=== PATIENT | male | born 1960 | race Caucasian/White ===

== ENCOUNTER 2017-09-13 17:29 | Emergency (ER) | payer MEDICARE, MEDICAID ==
[~2017-09-13] VITALS: Ht 177.8 cm; Wt 81.3 kg
[~2017-09-13 17:29] MED LIST: AMYL1CAP54 PO; BACL20TA11 PO; CITA20TA11 PO; DOCU-28 PO; HYDR-3972 PO; ONDA4TAB6 PO; PROC-8 PO; PROM25TA14 PO; SUCR1ORA2 PO
[2017-09-13 17:56] LABS: CLARITY,URINE Clear (Clear); COLOR,URINE Yellow (Yellow); GLUCOSE, URINE Negative (Neg); KETONES,URINE Negative (Neg); LEUKOCYTE ESTERASE ,URINE Negative (Neg); NITRITES, URINE Negative (Neg); OCCULT BLOOD,URINE Negative (Neg); PROTEIN,URINE Negative (Neg); UROBILINOGEN,URINE 0.2 E.U/dL (0.2-1.0)
[2017-09-13 17:59] LABS: UA COLLECTION TYPE VOIDED
[2017-09-13 18:01] LABS: BASOPHILS % (AUTO) 0.3 % (0-1); EOSINOPHILS # (AUTO) 0.1 X10'3 (0-0.9); EOSINOPHILS % (AUTO) 1.1 % (0-6); HEMATOCRIT 42.6 % (42.0-52.0); HEMOGLOBIN 14.8 g/dl (14.0-17.9); LYMPHOCYTES # (AUTO) 1.2 X10'3 (1.1-4.8); LYMPHOCYTES % (AUTO) 20.9 % (21-51); MEAN CORPUSCULAR HGB CONC 34.6 % (33.0-36.5); MEAN CORPUSCULAR VOLUME 89.6 FL (78-98); MEAN PLATELET VOLUME 8.6 FL (7.4-10.4); MONOCYTES # (AUTO) 0.3 X10'3 (0-0.9); MONOCYTES % (AUTO) 5.4 % (2-12); NEUTROPHILS # (AUTO) 4.1 X10'3 (1.8-7.7); NEUTROPHILS % (AUTO) 72.3 % (42-75); PLATELET COUNT 182 X10'3 (140-440); RED BLOOD COUNT 4.76 X10'6 (4.70-6.10); RED CELL DISTRIBUTION WIDTH 13.8 % (11.5-14.5); WHITE BLOOD COUNT 5.6 X10'3 (4.5-11.0)
[2017-09-13 18:17] LABS: ALANINE AMINOTRANSFERASE 90 U/L (12-78); ALBUMIN 4.2 G/DL (3.4-5.0); ALBUMIN/GLOBULIN RATIO 1.3 (1.1-1.5); ALKALINE PHOSPHATASE 104 IU/L (46-116); AMYLASE 33 U/L (25-115); ANION GAP 10 (8-16); ASPARTATE AMINO TRANSFERASE 51 U/L (10-37); BILIRUBIN,TOTAL 0.5 MG/DL (0.1-1.0); BLOOD UREA NITROGEN 7 MG/DL (7-18); BUN/CREATININE RATIO 8.6 (5.4-32.0); CHLORIDE 106 MMOL/L (99-107); CREATININE 0.81 MG/DL (0.60-1.10); GLUCOSE 108 MG/DL (70-104); POTASSIUM 3.5 MMOL/L (3.5-5.1); SODIUM 142 MMOL/L (135-145); TOTAL CARBON DIOXIDE 26.3 MMOL/L (24-32); TOTAL PROTEIN 7.5 G/DL (6.4-8.2); eGFR > 90 ML/MIN
[2017-09-13 18:28] LABS: LIPASE < 50 U/L (73-393)
[2017-09-13 19:04] VITALS: BP 131/87
== END 2017-09-13 19:06 | disposition home or self-care (01) ==
LOC: ER 17:30
DX: R10.12 Left upper quadrant pain (principal); R11.2 Nausea with vomiting, unspecified; K21.9 Gastro-esophageal reflux disease without esophagitis; F41.9 Anxiety disorder, unspecified; F32.9 Major depressive disorder, single episode, unspecified; F41.0 Panic disorder [episodic paroxysmal anxiety]; Z90.49 Acquired absence of other specified parts of digestive tract; F12.10 Cannabis abuse, uncomplicated; Z88.8 Allergy status to other drugs, medicaments and biological substances; Z88.5 Allergy status to narcotic agent; Z79.899 Other long term (current) drug therapy; Z95.5 Presence of coronary angioplasty implant and graft
CPT/HCPCS: 36415; 80053; 81003; 82150; 83690; 85025; 93005; 99285

== ENCOUNTER 2019-03-20 17:29 | Emergency (ER) | payer MEDICARE, MEDICAID ==
[~2019-03-20] VITALS: Ht 172.7 cm; Wt 68.0 kg
[~2019-03-20 17:29] MED LIST changes: -CITA20TA11 PO; +CITA20TA28 PO
[2019-03-20] MEDS ORDERED: HYDROcodone/acetaminophen 10/325mg tab PO ONE (18:30)
--- NOTE | 2019-03-20 18:36 | NUR ---
to CXR via WC.
--- NOTE | 2019-03-20 19:51 | NUR ---
to CT via WC.
[2019-03-20 19:56] LABS: BASOPHILS % (AUTO) 0.4 % (0-1); EOSINOPHILS % (AUTO) 0.5 % (0-6); HEMATOCRIT 40.4 % (42.0-52.0); LYMPHOCYTES # (AUTO) 1.4 X10'3 (1.1-4.8); LYMPHOCYTES % (AUTO) 17.5 % (21-51); MEAN CORPUSCULAR HEMOGLOBIN 32.6 PG (27.0-31.0); MEAN CORPUSCULAR HGB CONC 34.6 g/dL (33.0-36.5); MEAN CORPUSCULAR VOLUME 94.3 FL (78-98); MEAN PLATELET VOLUME 8.2 FL (7.4-10.4); MONOCYTES # (AUTO) 0.5 X10'3 (0-0.9); NEUTROPHILS # (AUTO) 6.3 X10'3 (1.8-7.7); NEUTROPHILS % (AUTO) 75.6 % (42-75); PLATELET COUNT 133 X10'3 (140-440); RED BLOOD COUNT 4.28 X10'6 (4.70-6.10); RED CELL DISTRIBUTION WIDTH 13.4 % (11.5-14.5); WHITE BLOOD COUNT 8.3 X10'3 (4.5-11.0)
[2019-03-20 20:12] LABS: ALANINE AMINOTRANSFERASE 456 U/L (12-78); ALBUMIN 3.4 G/DL (3.4-5.0); ALBUMIN/GLOBULIN RATIO 1.1 (1.1-1.5); ALKALINE PHOSPHATASE 189 IU/L (46-116); ANION GAP 8 (8-16); ASPARTATE AMINO TRANSFERASE 248 U/L (10-37); BILIRUBIN,TOTAL 1.5 MG/DL (0.1-1.0); BLOOD UREA NITROGEN 7 MG/DL (7-18); CALCIUM 8.6 MG/DL (8.5-10.1); CHLORIDE 106 MMOL/L (99-107); GLUCOSE 95 MG/DL (70-104); LIPASE 253 U/L (73-393); POTASSIUM 3.4 MMOL/L (3.5-5.1); SODIUM 140 MMOL/L (135-145); TOTAL PROTEIN 6.4 G/DL (6.4-8.2); eGFR > 90 ML/MIN
[2019-03-20 22:44] VITALS: BP 121/78
== END 2019-03-20 22:46 | disposition home or self-care (01) ==
LOC: ER 17:29
DX: R07.2 Precordial pain (principal); R10.13 Epigastric pain; R79.89 Other specified abnormal findings of blood chemistry; K21.9 Gastro-esophageal reflux disease without esophagitis; G89.29 Other chronic pain; F41.9 Anxiety disorder, unspecified; F32.9 Major depressive disorder, single episode, unspecified; F41.0 Panic disorder [episodic paroxysmal anxiety]; F17.200 Nicotine dependence, unspecified, uncomplicated; F12.90 Cannabis use, unspecified, uncomplicated; Z88.8 Allergy status to other drugs, medicaments and biological substances; Z90.49 Acquired absence of other specified parts of digestive tract; Z98.890 Other specified postprocedural states; Z95.5 Presence of coronary angioplasty implant and graft; Z88.6 Allergy status to analgesic agent; Z79.899 Other long term (current) drug therapy
CPT/HCPCS: 36415; 71046; 71250; 74176; 80053; 83690; 85025; 93005; 99284

== ENCOUNTER 2022-12-02 08:54 | Emergency (ER) | payer MEDICARE, MEDICAID ==
[~2022-12-02] VITALS: Ht 172.7 cm; Wt 60.9 kg
[2022-12-02] MEDS ORDERED: normal saline 1000ML IV soln IVB ONE (09:50)
[2022-12-02] MEDS ORDERED: ondansetron/PF 4mg/2ml inj IV ONE (10:00)
[2022-12-02 10:31] LABS: BASOPHILS % (AUTO) 0.6 % (0-1); EOSINOPHILS % (AUTO) 0.4 % (0-6); HEMATOCRIT 45.2 % (42.0-52.0); HEMOGLOBIN 15.5 g/dl (14.0-17.9); LYMPHOCYTES # (AUTO) 1.4 X10'3 (1.1-4.8); LYMPHOCYTES % (AUTO) 19.1 % (21-51); MEAN CORPUSCULAR HEMOGLOBIN 32.6 PG (27.0-31.0); MEAN CORPUSCULAR HGB CONC 34.3 g/dL (33.0-36.5); MEAN CORPUSCULAR VOLUME 95.1 FL (78-98); MEAN PLATELET VOLUME 7.4 FL (7.4-10.4); MONOCYTES # (AUTO) 0.6 X10'3 (0-0.9); MONOCYTES % (AUTO) 7.8 % (2-12); NEUTROPHILS # (AUTO) 5.1 X10'3 (1.8-7.7); NEUTROPHILS % (AUTO) 72.1 % (42-75); PLATELET COUNT 265 X10'3 (140-440); RED BLOOD COUNT 4.76 X10'6 (4.70-6.10); RED CELL DISTRIBUTION WIDTH 13.7 % (11.5-14.5); WHITE BLOOD COUNT 7.1 X10'3 (4.5-11.0)
[2022-12-02 10:48] LABS: ALANINE AMINOTRANSFERASE 347 U/L (12-78); ALBUMIN 4.2 G/DL (3.4-5.0); ALBUMIN/GLOBULIN RATIO 1.2 (1.1-1.5); ALKALINE PHOSPHATASE 326 IU/L (46-116); ANION GAP 10 (8-16); ASPARTATE AMINO TRANSFERASE 112 U/L (10-37); BILIRUBIN,TOTAL 0.5 MG/DL (0.1-1.0); BLOOD UREA NITROGEN 17 MG/DL (7-18); CALCIUM 9.2 MG/DL (8.5-10.1); CHLORIDE 97 MMOL/L (99-107); CREATININE 0.63 MG/DL (0.60-1.10); GLUCOSE 384 MG/DL (70-104); LIPASE < 50 U/L (73-393); POTASSIUM 4.4 MMOL/L (3.5-5.1); SODIUM 134 MMOL/L (135-145); TOTAL CARBON DIOXIDE 27.3 MMOL/L (24-32); TOTAL PROTEIN 7.7 G/DL (6.4-8.2); eGFR > 90 ML/MIN
[2022-12-02] MEDS: morphine 4 MG/ML inj SYRINge IV PRN ×2 (10:54→12:09)
[2022-12-02] MEDS ORDERED: iohexol 300mg/ml 100ml inj. ONE (10:56)
[2022-12-02 11:17] LABS: CLARITY,URINE CLEAR (Clear); COLOR,URINE YELLOW (Yellow); GLUCOSE, URINE >=1000 mg/dl (Neg); KETONES,URINE 40 mg/dl (Neg); LEUKOCYTE ESTERASE ,URINE NEGATIVE (Neg); NITRITES, URINE NEGATIVE (Neg); OCCULT BLOOD,URINE NEGATIVE (Neg); PROTEIN,URINE NEGATIVE (Neg); UROBILINOGEN,URINE 0.2 E.U/dL (0.2-1.0)
[2022-12-02 11:22] LABS: UA COLLECTION TYPE CLN CATCH MIDSTREAM
[2022-12-02 11:25] LABS: BACTERIA,URINE NONE SEEN /HPF (Neg); MUCUS STRANDS NONE SEEN /LPF (Neg); RBC,URINE NONE SEEN /HPF (0-2); SQUAMOUS EPITHELIAL CELL,UR FEW /LPF (FEW); WBC,URINE 0-4 /HPF (0-4)
[2022-12-02] MEDS ORDERED: ketorolac trometh. 30mg/ml inj. IV ONE (11:45)
--- NOTE | 2022-12-02 13:03 | NUR ---
pt now reports pain is down to 2/10 and he is comfortable. IV fluids are done infusing. will recheck blood sugar and update provider. still awaiting CT results.
--- NOTE | 2022-12-02 14:24 | NUR ---
ORGANIC SEARCH LEAD PAGED TO ASSIST PT IN OBTAINING INSULIN.
[2022-12-02] MEDS ORDERED: metoclopramide 5 mg/ml inj IV ONE (14:50)
--- NOTE | 2022-12-02 15:04 | NUR ---
DIESEL MOTOR MECHANIC IN THE DEPARTMENT CURRENTLY. WILL SPEAK TO PATIENT.
[2022-12-02 16:02] VITALS: BP 114/78
== END 2022-12-02 16:05 | disposition home or self-care (01) ==
LOC: ER 08:56
DX: R73.9 Hyperglycemia, unspecified (principal); R10.9 Unspecified abdominal pain; K21.9 Gastro-esophageal reflux disease without esophagitis; F31.9 Bipolar disorder, unspecified; Z87.81 Personal history of (healed) traumatic fracture; Z88.6 Allergy status to analgesic agent; Z88.8 Allergy status to other drugs, medicaments and biological substances; Z79.899 Other long term (current) drug therapy
CPT/HCPCS: 36415; 71260; 74177; 76700; 80053; 81001; 82948; 83690; 83735; 85025; 93005; 96374; 96375; 96376; 99285; J1885; J2270; J2405; J2765; J3490; J7030; Q9967

== ENCOUNTER 2022-12-05 08:34 | Emergency (ER) | payer MEDICARE, MEDICAID ==
[~2022-12-05] VITALS: Ht 172.7 cm; Wt 62.0 kg
[2022-12-05] MEDS ORDERED: acetaminophen 325mg tablet PO ONE (09:30)
[2022-12-05 09:56] VITALS: BP 133/81
== END 2022-12-05 10:06 | disposition home or self-care (01) ==
LOC: ER 08:34
DX: G56.21 Lesion of ulnar nerve, right upper limb (principal); M25.511 Pain in right shoulder; K21.9 Gastro-esophageal reflux disease without esophagitis; E11.9 Type 2 diabetes mellitus without complications; F12.90 Cannabis use, unspecified, uncomplicated; Z88.5 Allergy status to narcotic agent; Z88.1 Allergy status to other antibiotic agents
CPT/HCPCS: 73030; 99284; A4565

== ENCOUNTER 2024-02-02 12:30 | Emergency (ER) | payer MEDICARE, MEDICAID ==
[~2024-02-02] VITALS: Ht 172.7 cm; Wt 71.4 kg
[2024-02-02 13:23] VITALS: RESP 18; TEMP 97.8
[2024-02-02] MEDS ORDERED: ONDA4TAB12 PO (16:21)
[2024-02-02 16:47] VITALS: BP 139/81; PULSE 81; O2SAT 97
== END 2024-02-02 16:53 | disposition home or self-care (01) ==
LOC: ER 12:30
DX: F07.81 Postconcussional syndrome (principal); E11.9 Type 2 diabetes mellitus without complications; G89.29 Other chronic pain; Z85.9 Personal history of malignant neoplasm, unspecified; F32.A Depression, unspecified; F41.9 Anxiety disorder, unspecified; Z90.49 Acquired absence of other specified parts of digestive tract; F12.90 Cannabis use, unspecified, uncomplicated; Z98.890 Other specified postprocedural states; Z91.018 Allergy to other foods; Z79.899 Other long term (current) drug therapy; Z88.8 Allergy status to other drugs, medicaments and biological substances
CPT/HCPCS: 99283

== ENCOUNTER 2025-02-10 13:12 | Emergency (ER) | payer MEDICARE, MEDICAID ==
[~2025-02-10] VITALS: Ht 172.7 cm; Wt 66.5 kg
[~2025-02-10 13:12] MED LIST changes: +CITA-178 PO; -CITA20TA28 PO; +ONDA-243 PO
--- NOTE | 2025-02-10 14:18 | RADIOLOGY REPORT ---
Indication: HAND PAIN Technique: 3 views left hand Comparison: None FINDINGS/IMPRESSION: No radiographic evidence for acute fracture or dislocation. No significant soft tissue edema. No rad iopaque foreign body. 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
[2025-02-10] MEDS: naproxen 500mg tablet PO ONE (14:37)
--- NOTE | 2025-02-10 15:27 | Physician Documentation ---
History of Present Illness ~ Chief Complaint: Hand pain Stated Complaint: LEFT KNUCKLE PAIN Time Seen by MD: 14:07 OK to notify your PCP?: Yes Primary Medical Doctor: Kami Schrader Source: patient Mode of Arrival: POV Exam Limitations: no limitations HPI 64-year-old male presents with increased left hand and 3rd finger knuckle pain and swelling after dog stepped on it today around 11:00 a.m.. He states that he is a patient of Dr. Johnson and is awaiting reconstructive hand surgery and last saw For 2 weeks ago. He reports that he has decreased range of motion in the hand at baseline. He took 2 Tylenol around 11 30 this morning for the pain. Tetanus within 5 years: Yes Medication Reconciliation Allergies: Coded Allergies: tramadol HCl (Verified Allergy, Intermediate, SEIZURES, 03/20/19) meloxicam (Verified Allergy, Mild, DIZZY, 03/20/19) ziprasidone HCl (Verified Adverse Reaction, Intermediate, EYES DROOP, 03/20/19) ziprasidone mesylate (Verified Adverse Reaction, Intermediate, EYES DROOP, 03/20/19) Uncoded Allergies: NYTOL (Allergy, Unknown, 05/22/14) orange (Allergy, Unknown, 08/06/12) oranges (Adverse Reaction, Intermediate, hates oranges, 06/21/13) Scheduled Citalopram Hydrobromide* (Celexa*), 20 MG PO BID, (Reported) Lipase/Protease/Amylase (Creon Dr 12,000 Units Capsule), 1 CAP PO DMRX1, (Reported) Naproxen (Naproxen), 1 TAB PO Q12H Sucralfate (Carafate), 10 ML PO QID, (Reported) Scheduled PRN Baclofen (Baclofen), 1 TAB PO TID PRN for muscle spasms, (Reported) Docusate Sodium (Colace), 1 CAP PO Q12H PRN for constipation Hydrocodone Bit/Acetaminophen (Hydrocodon-Acetaminophn 10-325 tablet), 1 TAB PO Q4H PRN for moderate or severe pain, (Reported) ONDANSETRON ODT 4mg tablet (Ondansetron Odt), 1 TAB PO Q6H PRN PRN for nausea/vomiting Ondansetron Hcl (Zofran), 1 TAB PO Q6H PRN for nausea Prochlorperazine Maleate (Compazine), 1 TAB PO Q8HPRN PRN for pain Promethazine HCl (Promethazine HCl), 1 TAB PO DAILY PRN for nausea/vomiting, (Reported) Past Medical History Past Medical History: Headache, Seizures, Diverticulitis, Diverticulosis, GERD, Pancreatitis, Hernia, Diabetes, Chronic Pain, Extremity Fracture, *CANCER*, Anxiety, Depression, Panic Disorder Past Surgical History: abdominal surgery, cholecystectomy, orthopedic surgeries, other Other Past Surgical History: Cardiac stent, hernia, pancreatic stents Alcohol Use: None Drug Use: marijuana Lives with: Spouse Lives In: Home Occupation: employed Review of Systems All Other Systems at this time: Reviewed and Negative Physical Exam Vital Signs: RN Vital Signs have been reviewed: Yes, Temperature: 98.0, Source: Temporal, Heart Rate: 88, Respiratory Rate: 16, BP: 139/87, Pulse Oximetry: 97, Weight: 66.500 Oxygen Flow Rate: 0 Pulse Oximetry Reflects: adequate oxygenation Physical Exam General: Alert, no distress. HEENT: No injection, moist mucous membranes. Neck: Full range of motion. Respiratory: No respiratory distress, equal chest rise and fall. Chest: No accessory muscle use. Cardiovascular: Regular rate and rhythm. Gastrointestinal: Nondistended. Extremities: Decreased range of motion in left hand and middle proximal interphalangeal joint, good CSM, good sensation and pulses. Neurologic: Oriented x4. Psychiatric: Normal mood and affect. Skin: Normal color, warm and dry. Progress Results/Orders Reviewed/noted all lab results: Yes Results/Orders Orders - KATELYN NETTLES Ortho Orders (02/10/25 ) Completed Orders - KATELYN NETTLES Naproxen Tablet (Naprosyn Tablet) (02/10/25 14:25) Medications Received in ER Medications (Trade) Dose Ordered Sig/Analy Route PRN Reason Start Time Stop Time Status Last Admin Dose Admin (Naprosyn tablet) 500 mg ONCE ONCE PO 02/10/25 14:25 02/10/25 14:27 DC 02/10/25 14:37 500 MG Vital Signs 02/10/25 13:16 Temp 98.0 Pulse 88 Resp 16 B/P (MAP) 139/87 Pulse Ox 97 O2 Flow Rate 0 EKG/XRAY/CT/US/VASC/MRI Bone/Soft Tissue X-Ray (Ext.) : Additional Comment Left hand x-ray as interpreted by me; no joint effusion, no acute fracture, no soft tissue swelling, no dislocation, or foreign body. Degenerative changes of left wrist and fingers. Medical Decision Making Additional info obtained from: old records Findings 64-year-old male presents with left hand pain and swelling especially at the proximal joint of the middle finger. He states that he is awaiting reconstr uctive surgery on this hand knuckle. His dog stepped on it this morning in caused increased pain, heard a pop sound and increased swelling. He has decreased range of motion in his hand at baseline so it is difficult to know if this is at his baseline or if this has increased since the injury. I gave naproxen while here in the department and sent a prescription to his pharmacy fo connie naproxen. I placed a call into Dr. Johnson as he is avionics integration engineer for ortho services today and left a message. It has been about 30-40 minutes and I have not received a phone call back regarding if this patient needs to be placed in a splint or not. His x-ray shows degenerative changes but there is no acute fracture. Patient has been educated to follow up and call Dr. Fleming's office 1st thing Wednesday, I placed a Siva bandage to help provide a little extra support and educated the patient on the RICE method. You can return back here for any new or worsening symptoms. General Diff Dx:Considerations: Include: Contusion, Fracture, Hematoma, Neurovascular injury, Sprain Departure Disposition: 01 HOME / SELF CARE / HOMELESS Impression: Primary Impression: Hand pain Condition: Stable Discharge Instructions: Arthritis, Nonspecific Additional Instructions: Please follow up with Dr. Johnson 1st thing Wednesday. You have been given a Siva bandage to provide a little extra support. Please rest, ice 20 minutes on 20 minutes off, elevate your hand for the next 48 hours and then you can switch to alternating ice and heat. Return back here for any new or worsening symptoms. Can take the naproxen for pain and swelling relief twice daily. Referrals: NO PRIMARY CARE PROVIDER (PCP) Prescriptions Naproxen (Naproxen) 500 Mg Tablet 1 TAB PO Q12H, #20 TAB Prov: KATELYN NETTLES TRAFFIC ROUTING ENGINEER 02/10/25 Education Educated: Patient Educated regarding: diagnosis, treatment, prognosis, need for follow up Signature Scribe Signature: . Attestation: Scribed for Katelyn Nettles by Katelyn Zapata NP . 02/10/25 15:28 KATELYN NETTLESP Feb 10, 2025 15:27
[2025-02-10] MEDS ORDERED: NAPR-56 PO (15:30)
[2025-02-10 15:31] VITALS: BP 163/103; PULSE 70; RESP 14; TEMP 98.3; O2SAT 100
== END 2025-02-10 15:40 | disposition home or self-care (01) ==
LOC: ER 13:13
DX: M79.642 Pain in left hand (principal); E11.9 Type 2 diabetes mellitus without complications; F12.90 Cannabis use, unspecified, uncomplicated; F41.9 Anxiety disorder, unspecified; F32.A Depression, unspecified; Z88.8 Allergy status to other drugs, medicaments and biological substances; Z90.49 Acquired absence of other specified parts of digestive tract; Z95.5 Presence of coronary angioplasty implant and graft
CPT/HCPCS: 73130; 99283; A6449

== ENCOUNTER 2025-06-21 17:24 | Emergency (ER) | payer MEDICARE, MEDICAID ==
[~2025-06-21] VITALS: Ht 172.7 cm; Wt 71.2 kg
[2025-06-21 17:32] VITALS: BP 125/83; PULSE 70; RESP 18; O2SAT 98
--- NOTE | 2025-06-21 20:03 | RADIOLOGY REPORT ---
CLINICAL HISTORY: Injury LEFT TECHNIQUE: 3 views of the right knee were obtained. COMPARISON: None FINDINGS: No acute fracture or dislocation is seen. No joint effusion is evident. There are minimal degenerative changes of the lateral compartment with osteophyte formation. IMPRESSION: NO ACUTE RADIOGRAPHIC ABNORMALITY OF THE RIGHT KNEE.
--- NOTE | 2025-06-21 20:38 | Physician Documentation ---
History of Present Illness ~ Chief Complaint: Knee Pain Stated Complaint: KNEE PAIN Time Seen by MD: 17:58 Primary Medical Doctor: Dr. Kami GIORDANO [age] year male who presents to the emergency department with the acute on chronic left knee pain. Reports that several days ago he had two dogs bumped into the lateral aspect of the knee creating left medial knee pain. There was no acute swelling. Reports multiple meniscus surgeries to the left knee. He is grossly neurologically intact. He has been wearing and articulated knee brace. Tetanus witin 5 years: Yes Medication Reconciliation Allergies: Coded Allergies: tramadol HCl (Verified Allergy, Intermediate, SEIZURES, 06/21/25) meloxicam (Verified Allergy, Mild, DIZZY, 06/21/25) ziprasidone HCl (Verified Adverse Reaction, Intermediate, EYES DROOP, 1 ) ziprasidone mesylate (Verified Adverse Reaction, Intermediate, EYES DROOP, 06/21/25) Uncoded Allergies: NYTOL (Allergy, Unknown, 05/22/14) orange (Allergy, Unknown, 08/06/12) oranges (Adverse Reaction, Intermediate, hates oranges, 06/21/13) Scheduled Citalopram Hydrobromide* (Celexa*), 20 MG PO BID, (Reported) Lipase/Protease/Amylase (Creon Dr 12,000 Units Capsule), 1 CAP PO DMRX1, ( Reported) Sucralfate (Carafate), 10 ML PO QID, (Reported) Scheduled PRN Baclofen (Baclofen), 1 TAB PO TID PRN for muscle spasms, (Reported) Docusate Sodium (Colace), 1 CAP PO Q12H PRN for constipation Hydrocodone Bit/Acetaminophen (Hydrocodon-Acetaminophn 10-325 tablet), 1 TAB PO Q4H PRN for moderate or severe pain, (Reported) ONDANSETRON ODT 4mg tablet (Ondansetron Odt), 1 TAB PO Q6H PRN PRN for nausea/vomiting Ondansetron Hcl (Zofran), 1 TAB PO Q6H PRN for nausea Prochlorperazine Maleate (Compazine), 1 TAB PO Q8HPRN PRN for pain Promethazine HCl (Promethazine HCl), 1 TAB PO DAILY PRN for nausea/vomiting, (Reported) Past Medical History Past Medical History: Headache, Seizures, Diverticulitis, Diverticulosis, GERD, Pancreatitis, Hernia, Diabetes, Chronic Pain, Extremity Fracture, *CANCER*, Anxiety, Depression, Panic Disorder Past Surgical History: abdominal surgery, cholecystectomy, orthopedic surgeries, other Other Past Surgical History: Cardiac stent, hernia, pancreatic stents Alcohol Use: None Drug Use: marijuana Lives with: Spouse Lives In: Home Occupation: employed Physical Exam Vital Signs: Temperature: 97.4, Source: Temporal, Heart Rate: 70, Respiratory Rate: 18, BP: 125/83, Pulse Oximetry: 98, Weight: 71.200 Oxygen Flow Rate: 0 Progress Results/Orders Results/Orders Orders - EILEEN MARTINEZ PAC Knee 3 Vws (06/21/25 19:38) Ortho Orders (06/21/25 ) Completed Orders - EILEEN MARTINEZ PAC Knee 3 Vws (06/21/25 19:38) Vital Signs 06/21/25 06/21/25 17:32 20:52 Temp 97.4 97.4 Pulse 70 Resp 18 B/P (MAP) 125/83 Pulse Ox 98 O2 Flow Rate 0 Medical Decision Making Additional information obtaine: N/A Findings Examination history consistent with acute on chronic left knee pain with no injury requiring x-ray imaging. X-ray imaging reassuring. Transition the patient from articulating patellar cut-out too long leg knee immobilizer and pr ovided crutches. Obvious effusion or obvious laxity yet can not exclude medial collateral ligament injury. Recommend primary care and orthopedic follow up for definitive management. General Diff Dx:Considerations: Include: Contusion, Fracture Knee Diff Dx:Considerations: Include: Arthritis, DJD, Meniscus injury, Neurovascular injury, Sprain-MCL, Sprain-LCL Ankle Diff Dx:Considerations: Include: Other (Noncontributory) Foot Diff Dx:Considerations: Include: Other (Noncontributory) Toe Diff Dx:Considerations: Include: Other (Noncontributory) Departure Disposition: HOME / SELF CARE / HOMELESS Impression: Primary Impression: Sprain of knee Qualified Codes: S83.412A - Sprain of medial collateral ligament of left knee, initial encounter Discharge Instructions: Knee Sprain, Adult Additional Instructions: X-rays are reassuring today. Please wear the along leg knee immobilizer for comfort and support and use crutches to assist with ambulation. Keep your scheduled follow up with the orthopedist for suspected medial collateral left knee injury. Referrals: NO PRIMARY CARE PROVIDER (PCP) Education Educated: Patient Educated regarding: diagnosis, treatment, prognosis, need for follow up Signature Scribe Signature: . Attestation: . EILEEN MARTINEZ [facility] Jun 21, 2025 20:38
[2025-06-21 20:52] VITALS: TEMP 97.4
== END 2025-06-21 20:54 | disposition home or self-care (01) ==
LOC: ER 17:25
DX: S83.412A Sprain of medial collateral ligament of left knee, initial encounter (principal); G89.29 Other chronic pain; E11.9 Type 2 diabetes mellitus without complications; K21.9 Gastro-esophageal reflux disease without esophagitis; F41.9 Anxiety disorder, unspecified; F32.A Depression, unspecified; F12.90 Cannabis use, unspecified, uncomplicated; Z95.5 Presence of coronary angioplasty implant and graft; Z90.49 Acquired absence of other specified parts of digestive tract; Z88.8 Allergy status to other drugs, medicaments and biological substances; Z87.19 Personal history of other diseases of the digestive system; Z88.5 Allergy status to narcotic agent; Z79.899 Other long term (current) drug therapy; W22.8XXA Striking against or struck by other objects, initial encounter; Y93.89 Activity, other specified; Y92.89 Other specified places as the place of occurrence of the external cause; Y99.8 Other external cause status
CPT/HCPCS: 29505; 73562; 99283

== ENCOUNTER 2025-08-15 12:59 | Outpatient (CLI) | payer MEDICARE, MEDICAID ==
--- NOTE | 2025-08-15 14:39 | RADIOLOGY REPORT ---
EXAM: MR MRI LOWER EXTREMITY LEFT INDICATION: PAIN IN LEFT KNEE TECHNIQUE:: Multiplanar and multisequence MR imaging of the left knee was performed in the absence of gadolinium contrast. COMPARISON: None FINDINGS: There is blunting of the free edge of the body of the medial meniscus due to a bucket-handle tear. The lateral meniscus is intact The posterior cruciate ligament is normal in contour and signal intensity. Anterior cruciate ligament thickened and increased in signal intensity probably due to partial tear The collateral ligaments are intact Quadriceps and patellar tendons are intact Trace joint effusion The hyaline cartilage surfaces covering the patellofemoral joint are smooth IMPRESSION: 1. There is blunting of the free edge of the body of the medial meniscus most likely due to a bucket-handle tear 2. Partial tear anterior cruciate ligament probably old
== END 2025-08-15 23:59 | disposition home or self-care (01) ==
LOC: MRI02 12:59
PROVIDERS: ATTEND Physician Assistant Surgical
DX: S83.212A Bucket-handle tear of medial meniscus, current injury, left knee, initial encounter (principal); M25.562 Pain in left knee; S83.512A Sprain of anterior cruciate ligament of left knee, initial encounter; S83.412A Sprain of medial collateral ligament of left knee, initial encounter; M71.22 Synovial cyst of popliteal space [Baker], left knee; X58.XXXA Exposure to other specified factors, initial encounter; Y93.89 Activity, other specified; Y92.89 Other specified places as the place of occurrence of the external cause; Y99.8 Other external cause status
CPT/HCPCS: 73721